=== PATIENT | male | born 1995 | race African-American/Black ===

== ENCOUNTER 2018-03-28 07:50 | Emergency (ER) | payer OTHER ==
[2018-03-28] MEDS: DIAZEPAM 5 MG TAB PO (08:21)
[2018-03-28] MEDS: IBUPROFEN 800 MG TAB PO (08:22)
[2018-03-28] MEDS: DEXAMETHASONE 10 MG/ML 1 ML INJ IM (08:22)
[2018-03-28] MEDS: KETOROLAC 60 MG INJ IM (08:22)
== END 2018-03-28 08:30 | disposition home or self-care (01) ==
LOC: FTE 07:50
DX: M54.9 Dorsalgia, unspecified (principal); F17.210 Nicotine dependence, cigarettes, uncomplicated
CPT/HCPCS: 99283; J1100

== ENCOUNTER 2018-07-04 00:07 | Emergency (ER) | payer OTHER ==
[2018-07-04] MEDS: ONDANSETRON (ODT) 4 MG TAB ODT (03:12)
== END 2018-07-04 04:12 | disposition home or self-care (01) ==
LOC: FTE 00:07
DX: R11.10 Vomiting, unspecified (principal)
CPT/HCPCS: 99283; Z7610